=== PATIENT | female | born 1955 | race Caucasian/White ===

== ENCOUNTER → 2020-07-19 | Outpatient (CLI) | payer MEDICARE ==
[~2020-07-19] VITALS: Ht 22.9 cm; Wt 149.2 kg
== END | disposition home or self-care (01) ==
LOC: DTH 10:51
PROVIDERS: ATTEND Internal Medicine Critical Care Medicine
DX: E66.01 Morbid (severe) obesity due to excess calories (principal); D47.3 Essential (hemorrhagic) thrombocythemia; E78.00 Pure hypercholesterolemia, unspecified
CPT/HCPCS: 97802

== ENCOUNTER → 2020-09-05 | Outpatient (CLI) | payer MEDICARE | END | disposition home or self-care (01) | LOC: DTH 12:42 | PROVIDERS: ATTEND Surgery | DX: E66.01 Morbid (severe) obesity due to excess calories (principal); Z01.818 Encounter for other preprocedural examination; E78.5 Hyperlipidemia, unspecified; Z98.84 Bariatric surgery status | CPT/HCPCS: 97803 ==

== ENCOUNTER → 2020-10-11 | Outpatient (CLI) | payer MEDICARE | END | disposition home or self-care (01) | LOC: DTH 11:08 | PROVIDERS: ATTEND Surgery | DX: E66.01 Morbid (severe) obesity due to excess calories (principal); E78.5 Hyperlipidemia, unspecified; Z98.84 Bariatric surgery status; D47.3 Essential (hemorrhagic) thrombocythemia; Z71.89 Other specified counseling | CPT/HCPCS: 97803 ==

== ENCOUNTER 2023-05-03 15:24 | Emergency (ER) | payer MEDICARE, OTHER ==
[~2023-05-03] VITALS: Ht 170.2 cm; Wt 122.5 kg
[2023-05-03 16:08] LABS: BASOPHILS # (AUTO) 0.04 K/uL (0.00-0.20); BASOPHILS % (AUTO) 0.8 % (0.0-5.0); HEMATOCRIT 45.7 % (36-48); IMMATURE GRANULOCYTE ABSOLUTE 0.01 K/uL (0-1); LYMPHOCYTES # (AUTO) 1.3 K/uL (1.0-4.8); LYMPHOCYTES % (AUTO) 24.9 % (21.0-51.0); MEAN CORPUSCULAR HEMOGLOBIN 30.8 pg (27.0-33.0); MEAN CORPUSCULAR HGB CONC 33.5 g/dL (32.0-36.0); MEAN CORPUSCULAR VOLUME 92.1 fL (79-99); MONOCYTES # (AUTO) 0.4 K/uL (0.1-1.0); MONOCYTES % (AUTO) 7.7 % (3.0-13.0); NEUTROPHILS # (AUTO) 3.3 K/uL (1.8-7.7); NEUTROPHILS % (AUTO) 64.4 % (40.0-77.0); PLATELET COUNT (AUTO) 359 K/uL (130-400); RED BLOOD CELL COUNT(AUTO) 4.96 MIL/uL (4.00-5.50); RED CELL DISTRIBUTION WIDTH 12.2 % (11.0-15.5); WHITE BLOOD COUNT (AUTO) 5.1 K/uL (4.8-10.8)
[2023-05-03 16:26] LABS: CREATININE 0.8 mg/dL (0.5-1.5); POTASSIUM 3.9 mmol/L (3.5-5.1)
[2023-05-03 16:30] LABS: ALBUMIN 3.9 g/dL (3.5-5.0); BILIRUBIN,TOTAL 0.7 mg/dL (0.2-1.0); TOTAL PROTEIN, SERUM 6.7 g/dL (6.0-8.3)
[2023-05-03] MEDS ORDERED: METOCLOPRAMIDE 10 MG/2 ML VIAL IVP ONE (16:30)
[2023-05-03] MEDS ORDERED: MECLIZINE HCL 25 MG TABLET PO ONE (16:30)
[2023-05-03] MEDS ORDERED: HYDROXYZINE 50MG VIAL 50 MG/ML VIAL IM SCH (17:00)
[2023-05-03 17:02] LABS: MAGNESIUM 2.1 mg/dL (1.80-2.40); THYROID STIMULATING HORMONE 1.06 uIU/mL (0.36-3.74)
[2023-05-03 18:29] LABS: ADD UA MICROSCOPIC YES; APPEARANCE,URINE CLEAR (CLEAR); BILIRUBIN,URINE NEGATIVE (NEGATIVE); COLOR,URINE LIGHT-YELLOW (YELLOW); GLUCOSE, URINE (UA) NEGATIVE (NEGATIVE); KETONES,URINE NEGATIVE (NEGATIVE); LEUKOCYTE ESTERASE ,URINE NEGATIVE Leu/uL (NEGATIVE); NITRATE,URINE NEGATIVE (NEGATIVE); OCCULT BLOOD,URINE NEGATIVE (NEGATIVE); PH,URINE 5.5 (5.0-8.0); PROTEIN,URINE NEGATIVE (NEGATIVE); UROBILINOGEN,URINE 0.2 mg/dL (0.2-1.0)
[2023-05-03 18:31] LABS: MUCUS,URINE RARE LPF (None Seen); RBC,URINE 0-1 /HPF (0-1); SQUAMOUS EPITHELIAL CELL,UR RARE /HPF (0-2); WBC,URINE 0-1 /HPF (0-1)
[2023-05-03 18:49] VITALS: BP 124/70; PULSE 80; RESP 18; O2SAT 98
== END 2023-05-03 19:03 | disposition home or self-care (01) ==
LOC: EDH 15:24
DX: R42 Dizziness and giddiness (principal); F41.9 Anxiety disorder, unspecified; E11.9 Type 2 diabetes mellitus without complications; I10 Essential (primary) hypertension
CPT/HCPCS: 99285; 96374; 70450; 84443; 83735; 80053; 85025; 81001; 36415; 96372; J3410; J2765

== ENCOUNTER 2024-06-07 01:40 | Observation (INO) | payer OTHER ==
[~2024-06-07] VITALS: Ht 167.6 cm; Wt 129.1 kg
[2024-06-07] MEDS: ondanSETRON 4MG INJ IVP ONE (02:24)
[2024-06-07] MEDS: 0.9%NACL 1000ML 1,000 ML IV ONE (02:24)
[2024-06-07 02:30] LABS: BASOPHILS # (AUTO) 0.03 K/uL (0.00-0.20); BASOPHILS % (AUTO) 0.6 % (0.0-5.0); EOSINOPHILS # (AUTO) 0.05 K/uL (0.00-0.70); HEMATOCRIT 41.1 % (36-48); IMMATURE GRANULOCYTE ABSOLUTE 0.01 K/uL (0-1); LYMPHOCYTES # (AUTO) 0.9 K/uL (1.0-4.8); LYMPHOCYTES % (AUTO) 17.9 % (21.0-51.0); MEAN CORPUSCULAR HEMOGLOBIN 30.8 pg (27.0-33.0); MEAN CORPUSCULAR HGB CONC 34.1 g/dL (32.0-36.0); MEAN CORPUSCULAR VOLUME 90.3 fL (79-99); MONOCYTES # (AUTO) 0.4 K/uL (0.1-1.0); MONOCYTES % (AUTO) 7.8 % (3.0-13.0); NEUTROPHILS # (AUTO) 3.5 K/uL (1.8-7.7); NEUTROPHILS % (AUTO) 72.5 % (40.0-77.0); PLATELET COUNT (AUTO) 331 K/uL (130-400); RED BLOOD CELL COUNT(AUTO) 4.55 MIL/uL (4.00-5.50); RED CELL DISTRIBUTION WIDTH 12.1 % (11.0-15.5); WHITE BLOOD COUNT (AUTO) 4.9 K/uL (4.8-10.8)
[2024-06-07 02:37] LABS: CREATININE 0.9 mg/dL (0.5-1.0); POTASSIUM 3.3 mmol/L (3.5-5.1)
[2024-06-07] MEDS ORDERED: ondanSETRON 4MG INJ IVP PRN ×2 (06:00→14:30)
[2024-06-07] MEDS: PoTASSium chloRIDE 10MEQ SR 10 MEQ/TAB TAB.SR.24H PO ONE (07:40)
[2024-06-07] MEDS: 0.9%NACL 1000ML 1,000 ML IV SCH (07:45)
[2024-06-07 10:00] VITALS: BP 111/77; PULSE 67; RESP 17; TEMP 98.2
[2024-06-07 12:00] VITALS: BP 127/63; PULSE 70; RESP 17; TEMP 98.2
[2024-06-07] MEDS ORDERED: hydrALAZine 20MG/ML VIAL IV PRN (14:30)
[2024-06-07] MEDS ORDERED: ATOR10 PO (14:43)
[2024-06-07] MEDS ORDERED: CHOL200013 PO (14:43)
[2024-06-07] MEDS ORDERED: GABA-529 PO (14:43)
[2024-06-07] MEDS ORDERED: SERT-440 PO (14:43)
[2024-06-07] MEDS ORDERED: PANT40TA54 PO (14:43)
[2024-06-07] MEDS ORDERED: AMLO-257 PO (14:43)
[2024-06-07 16:00] VITALS: BP 124/66; PULSE 65; RESP 18; TEMP 98.2
[2024-06-07] MEDS: INSULIN humuLIN R 100 UNIT/ML 3ML SQ SCH (16:30)
[2024-06-07 20:39] VITALS: BP 124/56; PULSE 76; RESP 19; TEMP 97.9
[2024-06-07 23:46] VITALS: BP 126/59; PULSE 69; RESP 19; TEMP 98.1
[2024-06-08 04:05] VITALS: BP 121/62; PULSE 61; RESP 18; TEMP 97.6
[2024-06-08 05:32] LABS: HEMATOCRIT 39.3 % (36-48); MEAN CORPUSCULAR HEMOGLOBIN 31.1 pg (27.0-33.0); MEAN CORPUSCULAR HGB CONC 33.3 g/dL (32.0-36.0); MEAN CORPUSCULAR VOLUME 93.3 fL (79-99); RED BLOOD CELL COUNT(AUTO) 4.21 MIL/uL (4.00-5.50); RED CELL DISTRIBUTION WIDTH 12.4 % (11.0-15.5); WHITE BLOOD COUNT (AUTO) 4.4 K/uL (4.8-10.8)
[2024-06-08 05:58] LABS: ALBUMIN 3.3 g/dL (3.5-5.0); BILIRUBIN,TOTAL 0.5 mg/dL (0.2-1.0); CREATININE 0.8 mg/dL (0.5-1.0); MAGNESIUM 1.8 mg/dL (1.80-2.40); POTASSIUM 3.7 mmol/L (3.5-5.1)
[2024-06-08 08:00] VITALS: BP 100/59; PULSE 75; RESP 20; TEMP 98.3; O2SAT 100
[2024-06-08 11:40] VITALS: BP 117/64; PULSE 72; RESP 18; TEMP 98
== END 2024-06-08 11:40 | disposition home or self-care (01) ==
LOC: EDH 01:40 → INTOOBSV 04:00 → EDHIP 04:00 → 4AH 09:35
PROVIDERS: ADMIT Internal Medicine; ATTEND Hospitalist
DX: T40.711A Poisoning by cannabis, accidental (unintentional), initial encounter (principal); R41.82 Altered mental status, unspecified; E87.6 Hypokalemia; I10 Essential (primary) hypertension; E11.9 Type 2 diabetes mellitus without complications; E66.811 Obesity, class 1; R42 Dizziness and giddiness; R53.83 Other fatigue; F41.9 Anxiety disorder, unspecified; R11.2 Nausea with vomiting, unspecified; Z68.42 Body mass index [BMI] 45.0-49.9, adult; Z79.899 Other long term (current) drug therapy; Y92.89 Other specified places as the place of occurrence of the external cause
CPT/HCPCS: 96374; 96361; 99285; 84484; 80048; 85025; 82948 ×5; 36415 ×2; 71045; 70450; 93005; 83735; 80053; 85027; G0378 ×31; J7030; J2405